=== PATIENT | male | born 1940 | race Caucasian/White ===

== ENCOUNTER 2020-09-24 09:18 | Day surgery (SDC) | payer MEDICARE, BC ==
[~2020-09-24] VITALS: Ht 180.3 cm; Wt 87.3 kg
[~2020-09-24 09:18] MED LIST: ASPI-1264 PO; ESOM40CA49 PO; FIBER PO; HYDR-3964 PO; LISI20TA28 PO; MELO-102 PO; MULT-1179 PO; NITR0.4T51 SL
[2020-09-24 09:38] VITALS: BP 151/88
[2020-09-24] MEDS ORDERED: LOSA25TA41 PO (09:59)
[2020-09-24] MEDS ORDERED: CHLO25TA10 PO (10:00)
[2020-09-24] MEDS ORDERED: MAGN400C PO (10:01)
[2020-09-24] MEDS ORDERED: EVOL140P3 SUBCUT (10:01)
[2020-09-24] MEDS ORDERED: POTA10CA44 PO (10:05)
[2020-09-24] MEDS ORDERED: fentaNYL/PF 50MCG/1 ML 2ML syringe ONE (10:05)
[2020-09-24] MEDS ORDERED: LIDOcaine Viscous 15ml cup ONE (10:05)
[2020-09-24] MEDS ORDERED: MIDAZolam 1 MG/ML 5ML VIAL ONE (10:05)
[2020-09-24] MEDS ORDERED: CELE200C PO (10:06)
[2020-09-24] MEDS ORDERED: TRAM50TA2 PO (10:06)
[2020-09-24 10:24] VITALS: BP 152/74
[2020-09-24 10:34] VITALS: BP 135/77
[2020-09-24 10:44] VITALS: BP 139/73
== END 2020-09-24 11:02 | disposition home or self-care (01) ==
LOC: GI LAB 09:18
PROVIDERS: ATTEND Specialist
DX: K22.70 Barrett's esophagus without dysplasia (principal); K21.00 Gastro-esophageal reflux disease with esophagitis, without bleeding; G47.30 Sleep apnea, unspecified; I25.2 Old myocardial infarction; Z87.891 Personal history of nicotine dependence; Z79.899 Other long term (current) drug therapy
CPT/HCPCS: 43239; 88305; J2250; J3010; J7040; 99152; A4620